=== PATIENT | female | born 1945 | race Caucasian/White ===

== ENCOUNTER → 2016-07-25 | Outpatient (CLI) | payer OTHER | LOC: FIMAGING 10:25 | DX: Z12.31 Encounter for screening mammogram for malignant neoplasm of breast (principal) | CPT/HCPCS: G0202 ==

== ENCOUNTER → 2017-07-27 | Outpatient (CLI) | payer OTHER | LOC: FIMAGING 10:55 | PROVIDERS: ATTEND Internal Medicine | DX: Z12.31 Encounter for screening mammogram for malignant neoplasm of breast (principal) ==

== ENCOUNTER → 2017-10-12 | Outpatient (CLI) | payer OTHER | LOC: BMCIMAGING 10:52 | PROVIDERS: ATTEND Internal Medicine | DX: Z13.820 Encounter for screening for osteoporosis (principal); M85.89 Other specified disorders of bone density and structure, multiple sites; Z87.81 Personal history of (healed) traumatic fracture ==

== ENCOUNTER → 2018-08-16 | Outpatient (CLI) | payer OTHER | LOC: EMCIMAGING 09:12 | PROVIDERS: ATTEND Internal Medicine Interventional Cardiology | DX: J32.9 Chronic sinusitis, unspecified (principal); I10 Essential (primary) hypertension; E78.5 Hyperlipidemia, unspecified; E11.9 Type 2 diabetes mellitus without complications | CPT/HCPCS: 70450-PN; 70486-PN ==

== ENCOUNTER → 2018-08-17 | Outpatient (CLI) | payer OTHER ==
[~2018-08-17] MED LIST: IOPAMIDOL (ISOVUE-370) 150 ML BTL IV ONE; METOPROLOL TARTRATE 5 MG/5 ML INJ ONE
== END ==
LOC: FIMAGING 07:30
PROVIDERS: ATTEND Internal Medicine Interventional Cardiology
DX: I25.10 Atherosclerotic heart disease of native coronary artery without angina pectoris (principal); E11.9 Type 2 diabetes mellitus without complications; E78.5 Hyperlipidemia, unspecified; Z79.4 Long term (current) use of insulin
CPT/HCPCS: 75574; Q9967; 82565-PO

== ENCOUNTER → 2018-09-06 | Outpatient (CLI) | payer OTHER | LOC: FIMAGING 11:44 | PROVIDERS: ATTEND Internal Medicine | DX: Z12.31 Encounter for screening mammogram for malignant neoplasm of breast (principal) ==

== ENCOUNTER 2018-09-07 06:49 | Day surgery (SDC) | payer OTHER ==
[2018-09-07] MEDS ORDERED: diphenhydrAMINE 25 MG CAP PO ONE ×2 (06:53→07:20)
[2018-09-07] MEDS ORDERED: FAMOTIDINE 20 MG TAB PO ONE (06:53)
[2018-09-07] MEDS ORDERED: NS 1,000 ML IV ONE (06:53)
[2018-09-07] MEDS ORDERED: ASPIRIN EC 325 MG TAB PO ONE ×2 (06:53→07:21)
[2018-09-07] MEDS ORDERED: DIAZEPAM 5 MG TAB PO ONE (06:53)
[2018-09-07] MEDS ORDERED: FAMOTIDINE 20 MG TAB ONE (07:20)
[2018-09-07] MEDS ORDERED: DIAZEPAM 5 MG TAB ONE (07:21)
[2018-09-07 07:38] LABS: PLATELET COUNT 180 10^3/uL (150-400)
[2018-09-07 07:46] LABS: PROTIME(PATIENT) 12.8 SEC (12.0-15.0)
[2018-09-07] MEDS ORDERED: LIDOCAINE 1% 300 MG/30 ML SDV ONE (08:06)
[2018-09-07] MEDS ORDERED: fentaNYL 100 MCG/2 ML INJ ONE (08:07)
[2018-09-07] MEDS ORDERED: VERAPAMIL 5 MG/2 ML VIAL ONE ×2 (08:07→08:39)
[2018-09-07] MEDS ORDERED: MIDAZOLAM 2 MG/2 ML VIAL ONE ×2 (08:07→08:50)
[2018-09-07] MEDS ORDERED: HEPARIN 10,000 UNIT/10 ML MDV (1,000 UNIT/ML) ONE (08:07)
[2018-09-07] MEDS ORDERED: IOPAMIDOL (ISOVUE-370) 150 ML BTL IV ONE (08:07)
[2018-09-07] MEDS ORDERED: NITROGLYCERIN 1,500 MCG/15 ML VIAL MISC ONE ×2 (08:39→08:46)
--- NOTE | 2018-09-07 09:12 | PDHPUP ---
History & Physical Update H&P update statement: This history and physical update is based on an assessment of the patient which was completed after admission or registration (within 24 hours), but prior to the surgery/procedure. H&P update: H&P reviewed & patient examined, no change in patient's condition since H&P completed
--- NOTE | 2018-09-07 09:13 | PDPROPOC ---
Sedation Plan of Care Sedation Plan of Care: vital signs stable, mental status noted, patient educated of risks, benefits, alternatives, patient can tolerate sedation ASA Classification: ASA 2 Planned drugs: fentanyl, midazolam Mallampati Score: Class 1 Mallampati Reference Image: Patient passed 3-3-2 rule?: Yes
--- NOTE | 2018-09-07 09:18 | PDDXCAT ---
Diagnostic Cath Note - . Date: 09/07/18 Soft Hat Binder: Panfilo Indication: Class I/II angina, intolerance to med therapy or failure to respond - Procedure Access: right groin Procedure: left heart catheterization, coronary angiography, left ventriculogram - Materials Left Heart Cath size: 5F Left Heart Cath materials: JL4.0, JR4.0, pigtail - Findings-Left Heart Catheterization LM: Unobstructed LAD: proximal 50%. Mid 40%. LCX: Ostial 40% RCA: dominant. unobstructed EDP: 15 mmhg LVEF: 70 Wall motion: 70% Complications: Unable to pass catheters from the right radial artery despite ia therapy. Estimated blood loss: <50ml Closure method: TR Band Assessment: Moderate LAD, ostial Cx disease with preserved LV function Plan: medical therapy.
--- NOTE | 2018-09-08 05:35 | CPEKG ---
Test Reason : OPEN Blood Pressure : / mmHG Vent. Rate : 078 BPM Atrial Rate : 079 BPM P-R Int : 161 ms QRS Dur : 099 ms QT Int : 506 ms P-R-T Axes : 061 -06 073 degrees QTc Int : 577 ms Sinus rhythm Low voltage, precordial leads Borderline T abnormalities, lateral leads Prolonged QT interval Confirmed by Yin Polo ([id number] on 09/08/2018 5:35:34 AM Referred By: NIKO WASHINGTON Confirmed By:Yin Polo
== END 2018-09-07 18:20 | disposition home or self-care (01) ==
LOC: FCATH 06:49
PROVIDERS: ATTEND Internal Medicine Interventional Cardiology
PROC: B2151ZZ Fluoroscopy of Left Heart using Low Osmolar Contrast (ICD-10-PCS; principal; 2018-09-07)
PROC: B2111ZZ Fluoroscopy of Multiple Coronary Arteries using Low Osmolar Contrast (ICD-10-PCS; principal; 2018-09-07)
PROC: 4A023N7 Measurement of Cardiac Sampling and Pressure, Left Heart, Percutaneous Approach (ICD-10-PCS; principal; 2018-09-07)
DX: I25.119 Atherosclerotic heart disease of native coronary artery with unspecified angina pectoris (principal); E11.9 Type 2 diabetes mellitus without complications; E78.5 Hyperlipidemia, unspecified; E03.9 Hypothyroidism, unspecified; M19.049 Primary osteoarthritis, unspecified hand; G47.33 Obstructive sleep apnea (adult) (pediatric); Z96.651 Presence of right artificial knee joint
CPT/HCPCS: 93005; 93458; C1769; J1644; J2250; J3010; Q9967